=== PATIENT | female | born 1935 | race African-American/Black ===

== ENCOUNTER 2020-07-21 22:05 | Inpatient (IN) ==
[2020-07-21] MEDS ORDERED: SODIUM CHLORIDE 0.9% 500 ML IV STA (22:27)
[2020-07-21] MEDS ORDERED: hydrALAZINE 20 MG/1 ML VIAL IV STA (22:27)
[2020-07-21 23:12] LABS: Basophils % 0.3 % (0.0-0.8); Eosinophils % 0.1 % (0.00-10.9); Hematocrit 40.8 VOL% (35.7-47.0); Hemoglobin 14.5 GM/DL (12.0-16.0); Immature Granulocytes % 0.4 %; Immature Granulocytes Absolute 0.04 #; Lymphocytes # 0.5 10*3/uL (1.4-4.0); Mean Corpuscular HGB Conc 35.5 GM/DL (32-36); Mean Corpuscular Volume 80.2 FL (87-102); Mean Platelet Volume 10.8 FL (9.6-12.0); Monocytes % 5.8 % (1.7-12.7); NRBC # 0.02 10*3/uL; Neutrophils % 88.4 % (38.7-73.9); Platelet Count 243 T/CUMM (130-400); Red Blood Count 5.09 MC/CUMM (3.8-5.5); Red Cell Distribution Width 14.6 % (9.3-17.3); White Blood Count 9.1 T/CUMM (4-12)
[2020-07-21 23:12] LABS: Bacteria,Urine Occasional /HPF (Few); Bilirubin,Urine Negative (Negative); Blood, Urine Moderate mg/dL (Negative); Glucose,Urine (UA) Negative (Negative); Hyaline Casts,Urine 40 /LPF (0-3); Ketones,Urine 20 mg/dL (Negative); Mucus,Urine Many /LPF (Occasional); Nitrite,Urine Negative (Negative); Protein,Urine >=500 MG/DL; RBC,Urine 1 /HPF (0-4); Squamous Epithelial Cell,Urine Occasional /HPF (0-10); Urine Appearance Slightly Hazy (Clear); Urine Color Amber (Yellow); Urine Specific Gravity 1.022 (1.001-1.035)
[2020-07-21 23:30] LABS: Albumin 3.2 G/DL (3.4-5.0); Bilirubin,Total 0.8 MG/DL (0.2-1.0); Calcium 9.5 MG/DL (8.5-10.1); Osmolality,Calculated 283.4 MOS/KG (273-304); Potassium 2.9 MMOL/L (3.5-5.1); Total Protein 8.3 G/DL (6.4-8.2)
[2020-07-22] MEDS ORDERED: cefTRIAXone 1,000 MG in SODIUM CHLORIDE 0.9% 100 ML IV STA (00:15)
[2020-07-22] MEDS ORDERED: POTASSIUM CHLORIDE RIDER 20 MEQ in PREMIX 1 EACH IV STA (00:15)
[2020-07-22] MEDS ORDERED: DEXTROSE 50% 25 GM/50 ML VIAL IV PRN ×2 (00:34)
[2020-07-22] MEDS ORDERED: GLUCAGON 1 MG VIAL IM PRN (00:34)
[2020-07-22] MEDS ORDERED: ACETAMINOPHEN 325 MG TABLET PO PRN (00:34)
[2020-07-22] MEDS ORDERED: hydrALAZINE 20 MG/1 ML VIAL IV PRN (00:34)
[2020-07-22] MEDS ORDERED: ONDANSETRON 4 MG/2 ML VIAL IV PRN (00:34)
[2020-07-22] MEDS ORDERED: AZITHROMYCIN INJ 500 MG in SODIUM CHLORIDE 0.9% 250 ML IV SCH (01:00)
[2020-07-22] MEDS: ENOXAPARIN 40 MG/0.4 ML SYRINGE SUBCUT SCH (01:04)
[2020-07-22] MEDS ORDERED: LABETALOL 20 MG/4 ML SYRINGE IV PRN ×2 (01:09→01:20)
[2020-07-22] MEDS: SODIUM CHLOR 0.45% KCL 20 MEQ 20 MEQ/1,000 ML BAG IV SCH ×2 (02:05→15:29)
[2020-07-22 06:48] LABS: Basophils % 0.2 % (0.0-0.8); Eosinophils % 0.1 % (0.00-10.9); Hematocrit 39.4 VOL% (35.7-47.0); Hemoglobin 13.9 GM/DL (12.0-16.0); Immature Granulocytes % 0.5 %; Immature Granulocytes Absolute 0.05 #; Lymphocytes # 0.8 10*3/uL (1.4-4.0); Lymphocytes % 7.5 % (21.3-54.2); Mean Corpuscular HGB Conc 35.3 GM/DL (32-36); Mean Corpuscular Volume 81.9 FL (87-102); Mean Platelet Volume 11.2 FL (9.6-12.0); Monocytes % 8.2 % (1.7-12.7); Neutrophils % 83.5 % (38.7-73.9); Platelet Count 222 T/CUMM (130-400); Red Blood Count 4.81 MC/CUMM (3.8-5.5); Red Cell Distribution Width 14.8 % (9.3-17.3); White Blood Count 10.6 T/CUMM (4-12)
[2020-07-22 07:33] LABS: Albumin 2.9 G/DL (3.4-5.0); Bilirubin,Total 1.6 MG/DL (0.2-1.0); Calcium 9.1 MG/DL (8.5-10.1); Osmolality,Calculated 281.4 MOS/KG (273-304); Potassium 3.2 MMOL/L (3.5-5.1); Total Protein 7.7 G/DL (6.4-8.2)
[2020-07-22 07:46] LABS: Hypochromasia 1+; Microcytosis 1+; Platelet Estimate Normal
[2020-07-22 07:55] LABS: Risk Ratio 2.66; VLDL CHOLESTEROL 17.2 MG/DL
[2020-07-22] MEDS: ASPIRIN 325 MG TABLET PO SCH (08:03)
[2020-07-22] MEDS: INSULIN REGULAR 100 UNIT/ML SUBCUT SCH ×4 (08:03→21:10)
[2020-07-22] MEDS: amLODIPine 5 MG TABLET PO SCH (08:04)
[2020-07-22] MEDS: PANTOPRAZOLE 40 MG TABLET PO SCH (08:04)
[2020-07-23] MEDS ORDERED: cefTRIAXone 1,000 MG in SODIUM CHLORIDE 0.9% 100 ML IV SCH (01:00)
[2020-07-23] MEDS: SODIUM CHLOR 0.45% KCL 20 MEQ 20 MEQ/1,000 ML BAG IV SCH ×2 (05:35→21:08)
[2020-07-23 06:32] LABS: Basophils # 0.1 10*3/uL (0.0-0.2); Basophils % 0.6 % (0.0-0.8); Eosinophils # 0.1 10*3/uL (0.0-0.87); Eosinophils % 1.5 % (0.00-10.9); Hematocrit 34.8 VOL% (35.7-47.0); Hemoglobin 12.6 GM/DL (12.0-16.0); Immature Granulocytes % 0.5 %; Immature Granulocytes Absolute 0.04 #; Lymphocytes # 0.5 10*3/uL (1.4-4.0); Lymphocytes % 6.2 % (21.3-54.2); Mean Corpuscular HGB Conc 36.2 GM/DL (32-36); Mean Corpuscular Volume 79.6 FL (87-102); Mean Platelet Volume 11.3 FL (9.6-12.0); Monocytes % 8.9 % (1.7-12.7); Neutrophils % 82.3 % (38.7-73.9); Platelet Count 201 T/CUMM (130-400); Red Blood Count 4.37 MC/CUMM (3.8-5.5)
[2020-07-23 06:46] LABS: Calcium 8.6 MG/DL (8.5-10.1); Osmolality,Calculated 276.7 MOS/KG (273-304); Potassium 3.1 MMOL/L (3.5-5.1)
[2020-07-23] MEDS ORDERED: MAGNESIUM SULF RIDER 2 GM/50 ML PREMIX IV PRN (07:50)
[2020-07-23] MEDS ORDERED: MAGNESIUM SULF RIDER 4 GM/100 ML PREMIX IV PRN (07:50)
[2020-07-23] MEDS: INSULIN REGULAR 100 UNIT/ML SUBCUT SCH ×4 (08:09→21:08)
[2020-07-23 08:27] LABS: Anisocytosis Slight; Band Neutrophils 2 % (0-10); Eosinophils 1 % (0-10); Lymphocytes 3 % (20-55); Platelet Estimate Normal; Segmented Neutrophils 84 % (50-85); Smudge Cells Few; Target Cells Few; Total Cells Counted 100
[2020-07-23] MEDS: ENOXAPARIN 40 MG/0.4 ML SYRINGE SUBCUT SCH (10:17)
[2020-07-23] MEDS: amLODIPine 5 MG TABLET PO SCH (10:17)
[2020-07-23] MEDS: ASPIRIN 325 MG TABLET PO SCH (10:17)
[2020-07-23] MEDS: PANTOPRAZOLE 40 MG TABLET PO SCH (10:18)
[2020-07-24] MEDS: INSULIN REGULAR 100 UNIT/ML SUBCUT SCH ×4 (07:55→22:18)
[2020-07-24] MEDS: ENOXAPARIN 40 MG/0.4 ML SYRINGE SUBCUT SCH (08:06)
[2020-07-24] MEDS: ASPIRIN 325 MG TABLET PO SCH (08:06)
[2020-07-24] MEDS: PANTOPRAZOLE 40 MG TABLET PO SCH (08:07)
[2020-07-24] MEDS: amLODIPine 5 MG TABLET PO SCH (08:07)
[2020-07-24 09:11] LABS: Basophils % 0.5 % (0.0-0.8); Eosinophils # 0.2 10*3/uL (0.0-0.87); Eosinophils % 2.1 % (0.00-10.9); Hematocrit 33.7 VOL% (35.7-47.0); Hemoglobin 12.2 GM/DL (12.0-16.0); Immature Granulocytes % 0.4 %; Immature Granulocytes Absolute 0.03 #; Lymphocytes # 0.7 10*3/uL (1.4-4.0); Lymphocytes % 9.1 % (21.3-54.2); Mean Corpuscular HGB Conc 36.2 GM/DL (32-36); Mean Corpuscular Volume 79.9 FL (87-102); Mean Platelet Volume 11.9 FL (9.6-12.0); Monocytes % 15.4 % (1.7-12.7); Neutrophils % 72.5 % (38.7-73.9); Platelet Count 201 T/CUMM (130-400); Red Blood Count 4.22 MC/CUMM (3.8-5.5); Red Cell Distribution Width 15.2 % (9.3-17.3); White Blood Count 7.5 T/CUMM (4-12)
[2020-07-24 09:53] LABS: Calcium 8.5 MG/DL (8.5-10.1); Osmolality,Calculated 278.4 MOS/KG (273-304); Potassium 3.7 MMOL/L (3.5-5.1)
[2020-07-24] MEDS: SODIUM CHLOR 0.45% KCL 20 MEQ 20 MEQ/1,000 ML BAG IV SCH (10:28)
[2020-07-24] MEDS ORDERED: hydrALAZINE 20 MG/1 ML VIAL IV PRN (16:19)
[2020-07-24] MEDS: ATORVASTATIN 80 MG TABLET PO SCH (21:01)
[2020-07-25] MEDS: SODIUM CHLOR 0.45% KCL 20 MEQ 20 MEQ/1,000 ML BAG IV SCH ×2 (00:49→18:04)
[2020-07-25 05:25] LABS: Basophils % 0.3 % (0.0-0.8); Eosinophils % 0.2 % (0.00-10.9); Hematocrit 32.8 VOL% (35.7-47.0); Hemoglobin 11.7 GM/DL (12.0-16.0); Immature Granulocytes % 0.7 %; Immature Granulocytes Absolute 0.06 #; Lymphocytes # 0.7 10*3/uL (1.4-4.0); Lymphocytes % 7.5 % (21.3-54.2); Mean Corpuscular HGB Conc 35.7 GM/DL (32-36); Mean Platelet Volume 11.1 FL (9.6-12.0); Monocytes % 17.6 % (1.7-12.7); Neutrophils % 73.7 % (38.7-73.9); Platelet Count 200 T/CUMM (130-400); Red Cell Distribution Width 14.8 % (9.3-17.3)
[2020-07-25 05:47] LABS: Eosinophils 1 % (0-10); Lymphocytes 6 % (20-55); Platelet Estimate Adequate; Segmented Neutrophils 78 % (50-85); Total Cells Counted 100
[2020-07-25 05:48] LABS: Hypochromasia Slight; Microcytosis Slight
[2020-07-25 05:49] LABS: Calcium 8.4 MG/DL (8.5-10.1); Osmolality,Calculated 272.8 MOS/KG (273-304); Potassium 3.5 MMOL/L (3.5-5.1)
[2020-07-25] MEDS: amLODIPine 5 MG TABLET PO SCH (09:25)
[2020-07-25] MEDS: ASPIRIN 325 MG TABLET PO SCH (09:25)
[2020-07-25] MEDS: PANTOPRAZOLE 40 MG TABLET PO SCH (09:25)
[2020-07-25] MEDS: ENOXAPARIN 40 MG/0.4 ML SYRINGE SUBCUT SCH (09:26)
[2020-07-25] MEDS: INSULIN REGULAR 100 UNIT/ML SUBCUT SCH ×4 (11:12→21:19)
[2020-07-25] MEDS: LOSARTAN 25 MG TABLET PO SCH (12:28)
[2020-07-25] MEDS: ATORVASTATIN 80 MG TABLET PO SCH (21:19)
[2020-07-26] MEDS: SODIUM CHLOR 0.45% KCL 20 MEQ 20 MEQ/1,000 ML BAG IV SCH (04:22)
[2020-07-26 06:03] LABS: Basophils % 0.5 % (0.0-0.8); Eosinophils # 0.2 10*3/uL (0.0-0.87); Eosinophils % 2.3 % (0.00-10.9); Hematocrit 33.1 VOL% (35.7-47.0); Hemoglobin 11.9 GM/DL (12.0-16.0); Immature Granulocytes % 0.4 %; Immature Granulocytes Absolute 0.03 #; Lymphocytes # 0.6 10*3/uL (1.4-4.0); Lymphocytes % 7.7 % (21.3-54.2); Mean Corpuscular Volume 80.3 FL (87-102); Mean Platelet Volume 11.9 FL (9.6-12.0); Neutrophils % 73.1 % (38.7-73.9); Platelet Count 223 T/CUMM (130-400); Red Blood Count 4.12 MC/CUMM (3.8-5.5); Red Cell Distribution Width 14.7 % (9.3-17.3); White Blood Count 7.4 T/CUMM (4-12)
[2020-07-26 06:32] LABS: Band Neutrophils 1 % (0-10); Eosinophils 1 % (0-10); Hypochromasia 1+; Lymphocytes 5 % (20-55); Microcytosis 1+; Segmented Neutrophils 79 % (50-85); Target Cells Few; Total Cells Counted 100
[2020-07-26 06:33] LABS: Calcium 8.4 MG/DL (8.5-10.1); Osmolality,Calculated 270.1 MOS/KG (273-304); Platelet Estimate Normal; Potassium 3.9 MMOL/L (3.5-5.1)
[2020-07-26] MEDS: INSULIN REGULAR 100 UNIT/ML SUBCUT SCH ×4 (09:12→22:25)
[2020-07-26] MEDS: amLODIPine 5 MG TABLET PO SCH (09:12)
[2020-07-26] MEDS: PANTOPRAZOLE 40 MG TABLET PO SCH (09:12)
[2020-07-26] MEDS: LOSARTAN 25 MG TABLET PO SCH (09:12)
[2020-07-26] MEDS: ENOXAPARIN 40 MG/0.4 ML SYRINGE SUBCUT SCH (09:12)
[2020-07-26] MEDS: ASPIRIN 325 MG TABLET PO SCH (09:12)
[2020-07-26] MEDS: ATORVASTATIN 80 MG TABLET PO SCH (22:25)
[2020-07-27 07:27] LABS: Calcium 8.5 MG/DL (8.5-10.1); Osmolality,Calculated 274.8 MOS/KG (273-304); Potassium 3.5 MMOL/L (3.5-5.1)
[2020-07-27] MEDS: amLODIPine 5 MG TABLET PO SCH (09:33)
[2020-07-27] MEDS: ASPIRIN 325 MG TABLET PO SCH (09:33)
[2020-07-27] MEDS: LOSARTAN 25 MG TABLET PO SCH ×2 (09:33→20:39)
[2020-07-27] MEDS: PANTOPRAZOLE 40 MG TABLET PO SCH (09:33)
[2020-07-27] MEDS: ENOXAPARIN 40 MG/0.4 ML SYRINGE SUBCUT SCH (09:34)
[2020-07-27] MEDS: INSULIN REGULAR 100 UNIT/ML SUBCUT SCH ×4 (11:23→21:26)
[2020-07-27] MEDS: ATORVASTATIN 80 MG TABLET PO SCH (20:39)
[2020-07-28 06:13] LABS: Basophils # 0.1 10*3/uL (0.0-0.2); Basophils % 0.8 % (0.0-0.8); Eosinophils # 0.2 10*3/uL (0.0-0.87); Eosinophils % 3.1 % (0.00-10.9); Hematocrit 32.5 VOL% (35.7-47.0); Immature Granulocytes % 0.6 %; Immature Granulocytes Absolute 0.04 #; Lymphocytes # 0.7 10*3/uL (1.4-4.0); Lymphocytes % 9.1 % (21.3-54.2); Mean Corpuscular HGB Conc 36.9 GM/DL (32-36); Mean Corpuscular Volume 78.5 FL (87-102); Monocytes % 15.7 % (1.7-12.7); Neutrophils % 70.7 % (38.7-73.9); Platelet Count 288 T/CUMM (130-400); Red Blood Count 4.14 MC/CUMM (3.8-5.5); Red Cell Distribution Width 14.6 % (9.3-17.3); White Blood Count 7.1 T/CUMM (4-12)
[2020-07-28 06:25] LABS: Calcium 9.3 MG/DL (8.5-10.1); Osmolality,Calculated 278.5 MOS/KG (273-304); Potassium 3.5 MMOL/L (3.5-5.1)
[2020-07-28 06:53] LABS: Eosinophils 2 % (0-10); Hypochromasia Slight; Lymphocytes 5 % (20-55); Microcytosis Slight; Platelet Estimate Adequate; Segmented Neutrophils 79 % (50-85); Total Cells Counted 100
[2020-07-28 06:54] LABS: Target Cells Few
[2020-07-28] MEDS: ASPIRIN 325 MG TABLET PO SCH (09:42)
[2020-07-28] MEDS: ENOXAPARIN 40 MG/0.4 ML SYRINGE SUBCUT SCH (09:42)
[2020-07-28] MEDS: INSULIN REGULAR 100 UNIT/ML SUBCUT SCH ×4 (09:42→21:20)
[2020-07-28] MEDS: LOSARTAN 25 MG TABLET PO SCH ×2 (09:43→20:20)
[2020-07-28] MEDS: amLODIPine 5 MG TABLET PO SCH (09:43)
[2020-07-28] MEDS: PANTOPRAZOLE 40 MG TABLET PO SCH (09:43)
[2020-07-28] MEDS: ATORVASTATIN 80 MG TABLET PO SCH (20:20)
[2020-07-29 05:54] LABS: Calcium 8.6 MG/DL (8.5-10.1); Potassium 3.6 MMOL/L (3.5-5.1)
[2020-07-29] MEDS: LOSARTAN 25 MG TABLET PO SCH ×2 (09:35→22:59)
[2020-07-29] MEDS: ASPIRIN CHEW 81 MG TABLET PO SCH (09:35)
[2020-07-29] MEDS: CLOPIDOGREL 75 MG TABLET PO SCH (09:35)
[2020-07-29] MEDS: PANTOPRAZOLE 40 MG TABLET PO SCH (09:36)
[2020-07-29] MEDS: INSULIN REGULAR 100 UNIT/ML SUBCUT SCH ×4 (09:37→22:59)
[2020-07-29] MEDS: ENOXAPARIN 40 MG/0.4 ML SYRINGE SUBCUT SCH (09:37)
[2020-07-29] MEDS: ATORVASTATIN 80 MG TABLET PO SCH (22:58)
[2020-07-30 06:10] LABS: Basophils # 0.1 10*3/uL (0.0-0.2); Eosinophils # 0.3 10*3/uL (0.0-0.87); Eosinophils % 3.2 % (0.00-10.9); Hematocrit 31.2 VOL% (35.7-47.0); Hemoglobin 11.3 GM/DL (12.0-16.0); Immature Granulocytes % 0.6 %; Immature Granulocytes Absolute 0.05 #; Lymphocytes # 0.8 10*3/uL (1.4-4.0); Lymphocytes % 8.5 % (21.3-54.2); Mean Corpuscular HGB Conc 36.2 GM/DL (32-36); Mean Corpuscular Volume 78.8 FL (87-102); Mean Platelet Volume 10.3 FL (9.6-12.0); Monocytes % 15.3 % (1.7-12.7); Neutrophils % 71.4 % (38.7-73.9); Platelet Count 374 T/CUMM (130-400); Red Blood Count 3.96 MC/CUMM (3.8-5.5); Red Cell Distribution Width 14.8 % (9.3-17.3); White Blood Count 8.8 T/CUMM (4-12)
[2020-07-30 06:35] LABS: Calcium 8.7 MG/DL (8.5-10.1); Osmolality,Calculated 277.8 MOS/KG (273-304); Potassium 3.4 MMOL/L (3.5-5.1)
[2020-07-30 08:13] LABS: Hypochromasia Slight; Platelet Estimate Normal
[2020-07-30] MEDS: ASPIRIN CHEW 81 MG TABLET PO SCH (08:45)
[2020-07-30] MEDS: CLOPIDOGREL 75 MG TABLET PO SCH (08:45)
[2020-07-30] MEDS: INSULIN REGULAR 100 UNIT/ML SUBCUT SCH ×4 (08:45→22:44)
[2020-07-30] MEDS: LOSARTAN 25 MG TABLET PO SCH ×2 (08:46→22:44)
[2020-07-30] MEDS: PANTOPRAZOLE 40 MG TABLET PO SCH (08:46)
[2020-07-30] MEDS: ATORVASTATIN 80 MG TABLET PO SCH (22:44)
[2020-07-31 09:19] LABS: Basophils # 0.1 10*3/uL (0.0-0.2); Basophils % 0.8 % (0.0-0.8); Eosinophils # 0.2 10*3/uL (0.0-0.87); Eosinophils % 2.2 % (0.00-10.9); Hematocrit 33.7 VOL% (35.7-47.0); Hemoglobin 12.4 GM/DL (12.0-16.0); Immature Granulocytes % 0.6 %; Immature Granulocytes Absolute 0.05 #; Lymphocytes # 0.6 10*3/uL (1.4-4.0); Mean Corpuscular HGB Conc 36.8 GM/DL (32-36); Mean Corpuscular Volume 78.2 FL (87-102); Mean Platelet Volume 9.8 FL (9.6-12.0); Monocytes % 12.5 % (1.7-12.7); Neutrophils % 76.9 % (38.7-73.9); Platelet Count 424 T/CUMM (130-400); Red Blood Count 4.31 MC/CUMM (3.8-5.5); Red Cell Distribution Width 14.8 % (9.3-17.3); White Blood Count 8.3 T/CUMM (4-12)
[2020-07-31 09:41] LABS: Calcium 8.9 MG/DL (8.5-10.1); Osmolality,Calculated 282.5 MOS/KG (273-304); Potassium 3.9 MMOL/L (3.5-5.1)
[2020-07-31] MEDS: LOSARTAN 25 MG TABLET PO SCH ×2 (09:43→22:47)
[2020-07-31] MEDS: ASPIRIN CHEW 81 MG TABLET PO SCH (09:43)
[2020-07-31] MEDS: CLOPIDOGREL 75 MG TABLET PO SCH (09:43)
[2020-07-31] MEDS: INSULIN REGULAR 100 UNIT/ML SUBCUT SCH ×4 (09:43→23:44)
[2020-07-31] MEDS: PANTOPRAZOLE 40 MG TABLET PO SCH (09:43)
[2020-07-31] MEDS: ATORVASTATIN 80 MG TABLET PO SCH (22:47)
[2020-08-01] MEDS: INSULIN REGULAR 100 UNIT/ML SUBCUT SCH ×3 (08:38→16:15)
[2020-08-01] MEDS: LOSARTAN 25 MG TABLET PO SCH (08:38)
[2020-08-01] MEDS: ASPIRIN CHEW 81 MG TABLET PO SCH (08:38)
[2020-08-01] MEDS: CLOPIDOGREL 75 MG TABLET PO SCH (08:38)
[2020-08-01] MEDS: PANTOPRAZOLE 40 MG TABLET PO SCH (08:38)
[2020-08-01 12:02] VITALS: BP 148/72
== END 2020-08-01 17:00 | disposition swing bed (61) | DRG 65 ==
LOC: EDUNIT# → EDBD → N.ED 22:05 → N.EDINP 22:05 → SUATTDRO 07-22 00:34 → N.5E 07-22 01:45 → SUATTDRO 07-27 10:49
PROVIDERS: ADMIT Internal Medicine; ATTEND Internal Medicine